=== PATIENT | female | born 2000 | race Caucasian/White ===

== ENCOUNTER 2021-02-08 14:36 | Emergency (ER) | payer MEDICAID ==
[~2021-02-08] VITALS: Ht 160 cm; Wt 100.0 kg
[2021-02-08 14:41] VITALS: BP 117/75
[2021-02-08] MEDS ORDERED: BO1 TP (14:48)
== END 2021-02-08 14:57 | disposition home or self-care (01) ==
LOC: ER 14:50
DX: Z48.02 Encounter for removal of sutures (principal)
CPT/HCPCS: 99281

== ENCOUNTER 2021-07-15 17:50 | Emergency (ER) | payer MEDICAID ==
[~2021-07-15] VITALS: Ht 165.1 cm; Wt 90.0 kg
[~2021-07-15 17:50] MED LIST: BO1 TP
[2021-07-15] MEDS ORDERED: ONDANSETRON HCL 4MG/2ML INJ IV STA (18:54)
[2021-07-15] MEDS ORDERED: IBUPROFEN 400MG TABLET PO ONE (19:00)
[2021-07-15] MEDS ORDERED: SODIUM CHLORIDE 0.9% 1,000 ML IV ONE (19:00)
[2021-07-15] MEDS ORDERED: ACETAMINOPHEN 325MG TABLET PO ONE (19:00)
[2021-07-15 19:13] LABS: BASOPHILS % 0.6 % (0.0-2.0); HEMATOCRIT. 40.4 % (36.0-48.0); HEMOGLOBIN. 13.4 g/dL (12.0-16.0); MEAN CORPUSCULAR HEMOGLOBIN 29.1 pg (28.0-32.0); MEAN CORPUSCULAR VOLUME 87.4 fL (81.0-99.0); MEAN PLATELET VOLUME 9.5 fl (7.4-10.4); MONOCYTES % 8.1 % (2.0-8.0); NEUTROPHILS % 82.3 % (40.0-76.0); PLATELET 218 x1000/uL (130-400); RED BLOOD CELL COUNT 4.63 mill/uL (4.2-5.4); RED CELL DISTRIBUTION WIDTH 14.2 % (11.6-14.6)
[2021-07-15 19:14] LABS: CHLORIDE 108 mEq/L (98-107)
[2021-07-15 19:30] LABS: CLARITY URINE CLOUDY (CLEAR); COLOR URINE YELLOW (YELLOW); KETONES URINE 1+ (NEGATIVE); LEUKOCYTE ESTERASE URINE TRACE (NEGATIVE); NITRITE URINE NEGATIVE (NEGATIVE); OCCULT BLOOD URINE NEGATIVE (NEGATIVE); PROTEIN URINE TRACE (NEGATIVE); SPECIFIC GRAVITY URINE 1.015 (1.005-1.030); UROBILINOGEN URINE 0.2 E.U./dL (0.2-1.0)
[2021-07-15 19:35] LABS: HCG SCREEN NEGATIVE
[2021-07-15] MEDS ORDERED: CEFTRIAXONE 1 G PREMIX 50 ML IV ONE (21:30)
[2021-07-15] MEDS ORDERED: IBUP-2028 MT (21:35)
[2021-07-15] MEDS ORDERED: CEPH500T MT (21:36)
[2021-07-15 22:00] VITALS: BP 106/50
== END 2021-07-15 22:18 | disposition home or self-care (01) ==
LOC: ER 17:50
DX: R50.9 Fever, unspecified (principal); R05.9 Cough, unspecified; N39.0 Urinary tract infection, site not specified; Z20.822 Contact with and (suspected) exposure to COVID-19
CPT/HCPCS: 36415; 71045; 80053; 81003; 84703; 85025; 87426; 96361; 96365; 96375; 99284; J0696; J2405; J7030